=== PATIENT | female | born 1955 | race Caucasian/White ===

== ENCOUNTER → 2016-08-31 | Outpatient (REF) | payer BC ==
[~2016-08-31] MED LIST: FLEXERIL OR; IBUP600T OR; NEUR100C OR; PERC5TAB8 OR; [UNRECOGNIZED DRUG - CODE] OR
[2016-09-01 14:25] LABS: INR 1.03
== END ==
LOC: M LAB REF 16:47
PROVIDERS: ATTEND Internal Medicine Medical Oncology
DX: C25.1 Malignant neoplasm of body of pancreas (principal); E86.0 Dehydration; K86.89 Other specified diseases of pancreas

== ENCOUNTER → 2016-09-03 | Outpatient (CLI) | payer BC ==
[~2016-09-03] MED LIST changes: +ACETAMINOPHEN 325 MG TAB As Ordered ONE; +BUPIVACAINE HCL 0.25% 10 ML VIAL As Ordered ONE; +ETHANOL ALCOHOL 98% INJ 5ML (DEHYDRATED) As Ordered ONE; +ISOVUE-300 61% 50ML VIAL (Q9967) As Ordered ONE; +ISOVUE-370 76% 100ML VIAL (Q9967) As Ordered ONE; +LIDOCAINE 2% MDV 20 ML VIAL As Ordered ONE; +LIDOCAINE W/EPINEPHRINE 1% 20ML VIAL As Ordered ONE; +MIDAZOLAM INJ 2 MG/2 ML VIAL (J2250) As Ordered ONE; +SODIUM BICARBONATE 8.4% INJ 50MEQ 50 ML VIAL As Ordered ONE; +fentaNYL 100 MCG/2 ML INJECTION (J3010) As Ordered ONE
--- NOTE | 2016-09-03 18:03 | REPKIM ---
CLINICAL HISTORY: Intractable abdominal pain secondary to pancreatic ca. PROCEDURE PERFORMED: CT guided percutaneous celiac plexus block and neurolysis INTERVENTIONALIST: Stephanie Fregoso MD CONSENT: The risks, benefits and alternatives to the procedure were explained to the patient and her family and informed written consent was obtained. MEDICATIONS: Lidocaine, Bupivacaine, Ethanol and Isovue Contrast. EBL: 5 mL COMPLICATIONS: None immediate PROCEDURE/FINDINGS: The patient was brought to the CT radiology suite where a timeout procedure was performed. With the patient placed in the supine position on the CT scan table, post contrast axial CT images were obtained through the abdomen to localize the celiac trunk. The abnormal pancreatic mass, liver lesion(s) and vascular anatomy were reviewed. Decision was then made to perform the procedure in an anterior approach. A site suitable for needle access was selected. The abdomen was prepped and draped in the usual sterile manner. Local anesthesia was administered and a 20G spinal needle was introduced under CT guidance into the pavithra-aortic space at the level of the celiac trunk via the transhepatic passage. A second 20-gauge needle was also placed via the transhepatic passage with its tip positioned in the pavithra-aortic space below the level of the celiac trunk. Diluted contrast (10%) mixed with Lidocaine (1%) and Bupivacaine (0.25%) was injected and then axial CT images were obtained to confirm each needle position prior to the neurolysis. Patient stated significant decline in pain. The correct needle tip position was controlled by injecting dilute contrast. After a test block, a mixture of 20 mL ethanol and 5 mL Bupivicaine (0.25%) was prepared, and then injected into each target pavithra-aortic space using a total of approximately 16 mL. Both needles were removed. The patient tolerated the procedure well with no evidence of immediate complications. This procedure was performed with CT guidance. Dr. Fregoso was present. IMPRESSION: Successful CT guided block/neurolysis of the celiac plexus as described above. cc: Gogo Mckeon MD [facility]
== END | disposition home or self-care (01) ==
LOC: M IRPRO 10:56
PROVIDERS: ATTEND Internal Medicine Medical Oncology
DX: C25.9 Malignant neoplasm of pancreas, unspecified (principal)
CPT/HCPCS: 64530; 77012; J2250; J3010; Q9967

== ENCOUNTER → 2016-10-08 | Outpatient (REF) | payer BC ==
[~2016-10-08] MED LIST changes: -ACETAMINOPHEN 325 MG TAB As Ordered ONE; -BUPIVACAINE HCL 0.25% 10 ML VIAL As Ordered ONE; -ETHANOL ALCOHOL 98% INJ 5ML (DEHYDRATED) As Ordered ONE; -ISOVUE-300 61% 50ML VIAL (Q9967) As Ordered ONE; -ISOVUE-370 76% 100ML VIAL (Q9967) As Ordered ONE; -LIDOCAINE 2% MDV 20 ML VIAL As Ordered ONE; -LIDOCAINE W/EPINEPHRINE 1% 20ML VIAL As Ordered ONE; -MIDAZOLAM INJ 2 MG/2 ML VIAL (J2250) As Ordered ONE; -SODIUM BICARBONATE 8.4% INJ 50MEQ 50 ML VIAL As Ordered ONE; -fentaNYL 100 MCG/2 ML INJECTION (J3010) As Ordered ONE
== END ==
LOC: M LAB REF 17:18
PROVIDERS: ATTEND Internal Medicine Medical Oncology
DX: C25.9 Malignant neoplasm of pancreas, unspecified (principal)

== ENCOUNTER → 2016-10-30 | Outpatient (CLI) | payer BC ==
[~2016-10-30] MED LIST changes: +BUPIVACAINE HCL 0.25% 10 ML VIAL As Ordered ONE; +ETHANOL ALCOHOL 98% INJ 5ML (DEHYDRATED) As Ordered ONE; +ISOVUE-300 61% 50ML VIAL (Q9967) As Ordered ONE; +ISOVUE-370 76% 100ML VIAL (Q9967) As Ordered ONE; +LIDOCAINE 2% MDV 20 ML VIAL As Ordered ONE; +MORPHINE 30 MG SA TAB PO ONE; +SODIUM BICARBONATE 8.4% INJ 50MEQ 50 ML VIAL As Ordered ONE
--- NOTE | 2016-10-30 16:45 | REPKIM ---
CLINICAL HISTORY: Metastatic pancreatic ca and intractable right and mid abdominal pain. On last encounter celiac block/neurolysis performed in August 2016. PROCEDURE PERFORMED: CT guided percutaneous celiac plexus block and neurolysis INTERVENTIONALIST: Stephanie Fregoso MD CONSENT: The risks, benefits and alternatives to the procedure were explained to the patient and her family and informed written consent was obtained. MEDICATIONS: Lidocaine, Bupivacaine, Ethanol and Isovue Contrast. EBL: 3 mL COMPLICATIONS: None immediate PROCEDURE/FINDINGS: The patient was brought to the CT radiology suite where a timeout procedure was performed. With the patient placed in the supine position on the CT scan table, post contrast axial CT images were obtained through the abdomen to localize the celiac trunk/celiac ganglia level. 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 Decision was then made to perform the procedure in an anterior approach. A site suitable for needle access was selected. The abdomen was prepped and draped in the usual sterile manner. Local anesthesia was administered and a 20G spinal needle was introduced under CT guidance into the right celiac ganglion/pavithra-aortic space via the transhepatic passage. Test lidocaine was injected which relieved patients right sided abdominal and back pain. Diluted contrast (10%) mixed with Lidocaine (1%) and Bupivacaine (0.25%) was then injected and then axial CT images were obtained to confirm each needle position prior to the neurolysis. Patient stated significant decline in pain. The correct needle tip position was controlled by injecting dilute contrast. After a test block, a mixture of 10 mL ethanol and 2.5 mL Bupivicaine (0.25%) was prepared, and then injected into the target position. The needle was removed. The patient tolerated the procedure well with no evidence of immediate complications. This procedure was performed with CT guidance. Dr. Fregoso was present. IMPRESSION: Successful CT guided block/neurolysis of the right and central aspect of the celiac ganglia/plexus as described above. cc: Gogo Mckeon MD [facility]
== END | disposition home or self-care (01) ==
LOC: M IRPRO 10:56
PROVIDERS: ATTEND Internal Medicine Medical Oncology
DX: G89.3 Neoplasm related pain (acute) (chronic) (principal); C25.9 Malignant neoplasm of pancreas, unspecified; C79.9 Secondary malignant neoplasm of unspecified site
CPT/HCPCS: 64530; 77012; Q9967